=== PATIENT | male | born 1975 | race Caucasian/White ===

== ENCOUNTER 2022-10-31 00:25 | Day surgery (SDC) | payer BC, SELFPAY ==
[2022-10-20 14:00] VITALS: BMI 23.7
[2022-10-31 08:43] VITALS: BP 119/77; PULSE 71; RESP 16; TEMP 36.1; O2SAT 98; BMI 20.7
[2022-10-31] MEDS: LACTATED RINGERS 1,000 ML 150 ML IV CONT (08:50)
--- NOTE | 2022-10-31 09:16 | P.HP_ITS ---
History of Present Illness History of Present Illness Consent: Risks, benefits, and alternatives have been discussed and questions answered. Patient agrees to proceed with procedure. Chief complaint: neoplasm screening Narrative: Jadiel Drake is a 46 year old male Referred for colon cancer screening. Review of Systems Review of Systems: All systems reviewed & are unremarkable except as noted in HPI and below [facility] Social History Social History Smoking packs per day: 0.25 Smoking cigarettes per day: 5.0 Smoking status: Current every day smoker Tobacco type: cigarettes Meds Home Medications and Allergies Home Medications Medication Instructions Recorded Confirmed Type No Home Medications 10/20/22 10/31/22 History Allergies Allergy/AdvReac Type Severity Reaction Status Date / Time No Known Allergies Allergy Verified 10/31/22 08:42 Vital Signs Vital Signs - 24 hr 10/31/22 08:43 Temperature 36.1 C L Pulse Rate 71 Respiratory Rate 16 Blood Pressure 119/77 Pulse Oximetry 98 Oxygen Delivery Room Air Exam Resp: Auscultation: clear to auscultation bilaterally Cardio: Rate: regular rate Rhythm: regular rhythm GI: GI Palp: Yes Soft to palpation and No Tenderness to palpation present (GI) Assessment and Plan Assessment and plan (1) Colon cancer screening: Code(s): Z12.11 - Encounter for screening for malignant neoplasm of colon Status: Acute Assessment and Plan: Colonoscopy with possible biopsy or polypectomy or cautery or injection of substances.
--- NOTE | 2022-10-31 09:37 | WPDANESEPPF ---
Anes - Initial Pre Proc Eval Procedure: Operation Date: 10/31/22 10:15 Proposed Procedures p Screening Colonoscopy - Jonnathan Penny MD Date/Time: 10/31/22 09:37 Surgeon: Jonnathan Penny MD Pre Op Diagnosis: neoplasm screening Patient Data Age: 46 Gender: M Height: 1.78 m Weight: 65.5 kg Last Vital Signs Temp 97 F L 10/31/22 08:43 Pulse 71 10/31/22 08:43 Resp 16 10/31/22 08:43 BP 119/77 10/31/22 08:43 Pulse Ox 98 10/31/22 08:43 O2 Del Method Room Air 10/31/22 08:43 Allergies Allergy/AdvReac Type Severity Reaction Status Date / Time No Known Allergies Allergy Verified 10/31/22 08:42 Home Medications Medication Instructions Recorded Confirmed Type No Home Medications 10/20/22 10/31/22 History Patient hx anesthesia problems: none Family hx anesthesia problems: none Results Review: All pre-operative results and documents have been reviewed as part of the pre-operative evaluation. [facility] Social History Social History Smoking packs per day: 0.25 Smoking cigarettes per day: 5.0 Smoking status: Current every day smoker Tobacco type: cigarettes Anes - Eval Final PreProcedure Day of Procedure 10/31/22 09:37 Patient weight: normal Heart: regular rate and rhythm Lungs: clear to auscultation Airway: Mallampati scale class II Neurological: alert and oriented Last oral intake: >/= 8 hours ASA classification: II Emergent: no Anesthetic plan: proceed Anesthesia type and monitoring: general GIVS and standard monitoring Results Review: All pre-operative results and documents have been reviewed as part of the pre-operative evaluation. Informed Consent: The patient's anesthetic plan and its attendant risks and benefits were discussed with the patient/family/POA. Questions were solicited and answers provided to the satisfaction of the patient/family/POA.
[2022-10-31] MEDS: SIMETHICONE ORAL SUSPENSION 20 MG/0.3 ML 30 ML BOTTLE 0.6 ML IRRIGATION (10:11)
[2022-10-31 10:22] VITALS: BP 99/67; PULSE 70; RESP 22; O2SAT 96
[2022-10-31 10:32] VITALS: BP 105/74; PULSE 62; RESP 18; O2SAT 100
[2022-10-31 10:42] VITALS: BP 111/81; PULSE 68; RESP 18; O2SAT 100
== END 2022-10-31 10:54 | disposition home or self-care (01) ==
PROVIDERS: PCP Family Medicine; Visit Provider Internal Medicine Gastroenterology
PROC: 0DJD8ZZ Inspection of Lower Intestinal Tract, Via Natural or Artificial Opening Endoscopic (ICD-10-PCS; CPT 45378; principal; 2022-10-31 10:15)
DX: Z12.11 Encounter for screening for malignant neoplasm of colon (principal); F17.210 Nicotine dependence, cigarettes, uncomplicated
CPT/HCPCS: 45378; J2704; J7120